=== PATIENT | female | born 1970 | race Caucasian/White ===

== ENCOUNTER 2017-08-15 18:44 | Emergency (ER) | payer SELFPAY ==
[~2017-08-15] VITALS: Ht 162.6 cm; Wt 81.5 kg
[~2017-08-15 18:44] MED LIST: SULF-154 PO; Z.0.NO CURRENT MEDS
[2017-08-15 19:44] VITALS: BP 134/83; PULSE 98; RESP 18; TEMP 98.6
[2017-08-15] MEDS ORDERED: ZITHTAB PO (20:52)
--- NOTE | 2017-08-15 20:54 | PD ---
HPI Chief Complaint: Cold / Flu Symptoms Time Seen by Provider: 20:46 Travel History International Travel<30 days: No Contact w/Intl Traveler<30days: No Traveled to known affect area: No History of Present Illness HPI 46-year-old white female presents to emergency department requesting treatment of a cough which she has had now for 2 weeks. She states that she coughs so hard it causes her to gag and vomit. She states that she is watching videos and feels that she may have whooping cough. She works at [employer] in the [place] department. She denies any fever or chills. No ear pain or sore throat. No nausea. No abdominal pain. She states that she does coughs so hard she vomits. She has had some increasing urinary frequency but no dysuria. PFSH Past Medical History Narrative Medical Anemia Anemia: Yes Diminished Hearing: Yes (BILATERAL) Medical other: Yes (ENLARGED LIVER) Immunizations Current: Yes Tetanus Vaccination: < 5 Years ?: Not : 3 Para: 3 Tubal Ligation: Yes Past Surgical History Surgical History: No Previous Surgery Social History Alcohol Use: No Tobacco Use: No Substance Use: No Allergies-Medications (Allergen,Severity, Reaction): Coded Allergies: No Known Allergies (Verified , 08/15/17) Reported Meds & Prescriptions Reported Meds & Active Scripts Active Septra Ds (Trimethoprim/Sulfamethoxazole) Tab 1 Tab PO BID Reported No Current Meds (Miscellaneous Medication) Misc Review of Systems Except as stated in HPI: all other systems reviewed are Neg Physical Exam Narrative GENERAL: Well-developed, well-nourished in no acute distress. Nontoxic appearing. HEAD: Normocephalic, atraumatic. EYES: Pupils equal round and reactive. Extraocular motions intact. No scleral icterus. No injection or drainage. ENT: TMs clear without erythema. The external auditory canals clear. Nose: clear . Posterior pharynx is pink and moist. No tonsillar edema or exudate. Uvula midline. Airway patent. NECK: Trachea midline.Supple, nontender, moves head freely. No central bony tenderness or spasm. CARDIOVASCULAR: Regular rate and rhythm without murmurs, gallops, or rubs. RESPIRATORY: Clear to auscultation. Breath sounds equal bilaterally. No wheezes , rales, or rhonchi. GASTROINTESTINAL: Abdomen soft, non-tender, nondistended. No hepato-splenomegaly , or palpable masses. No guarding. EXTREMITIES: No clubbing, cyanosis, or edema. No joint tenderness, effusion, or edema noted. BACK: Nontender without deformity or crepitance. No flank tenderness. Data Data Last Documented VS Vital Signs Date Time Temp Pulse Resp B/P (MAP) Pulse Ox O2 Delivery O2 Flow Rate FiO2 08/15/17 19:44 98.6 98 18 134/83 (100) MDM Medical Decision Making Medical Screen Exam Complete: Yes Emergency Medical Condition: Yes Medical Record Reviewed: Yes Differential Diagnosis MDM: High Differential diagnoses: Pneumonia, bronchitis, URI, asthma, whooping cough Narrative Course This is bronchitis Diagnosis Primary Impression: Bronchitis Patient Instructions: General Instructions Additional Instructions: Rest. Increase fluids. Tylenol and Advil. Robitussin-DM. Zithromax. Followup with your Dr. in one week. Return to the ER for any problems. Med/Other Pt SpecificInfo: Prescription(s) given Scripts Azithromycin (Zithromax Z-Louie) 250 Mg Dspk 250 MG PO DIRECTED for Infection, #1 DSPK 0 Refills 500 MG (2 tabs) day 1, then 1 tab days 2-5. Prov: Irma Rocha MD 08/15/17 Disposition: 01 DISCHARGE HOME Condition: Stable Rohit Jones Aug 15, 2017 20:54
== END 2017-08-15 21:13 | disposition home or self-care (01) ==
LOC: NEPK 18:44
DX: J40 Bronchitis, not specified as acute or chronic (principal)
CPT/HCPCS: 99283